=== PATIENT | male | born 2000 | race Caucasian/White ===

== ENCOUNTER 2018-06-08 08:52 | Emergency (ER) | payer OTHER ==
[~2018-06-08] VITALS: Ht 162.6 cm; Wt 109.1 kg
[2018-06-08] MEDS ORDERED: LEVALBUTEROL HCL 1.25 MG/0.5 ML NEB SOLUTION NEB ONE (09:10)
[2018-06-08] MEDS ORDERED: IPRATROPIUM BROMIDE 0.5 MG/2.5 ML NEB SOLUTION NEB ONE (09:15)
[2018-06-08] MEDS ORDERED: MethylPREDNISolone SOD SUCC 125 MG/2 ML VIAL IM ONE (09:15)
[2018-06-08] MEDS ORDERED: 0.9% SODIUM CHLORIDE 15 ML NEB SOLUTION NEB ONE (09:16)
[2018-06-08] MEDS ORDERED: ALBUTEROL SULFATE HFA 90 MCG/PUFF 8 GM INHALER IH ONE ×2 (10:50→11:00)
[2018-06-08 10:56] VITALS: BP 112/58
== END 2018-06-08 11:06 | disposition home or self-care (01) ==
LOC: EMS 08:53
DX: J45.909 Unspecified asthma, uncomplicated (principal)
CPT/HCPCS: 94644; 96372; 99285; J2930; Z7610; J3535

== ENCOUNTER 2019-01-17 21:59 | Emergency (ER) | payer OTHER ==
[~2019-01-17] VITALS: Ht 162.6 cm; Wt 109.1 kg
[2019-01-17] MEDS ORDERED: IPRATROPIUM BROMIDE 0.5 MG/2.5 ML NEB SOLUTION NEB ONE ×2 (22:15→23:00)
[2019-01-17] MEDS ORDERED: ALBUTEROL SULFATE 2.5 MG/0.5 ML NEB SOLUTION NEB ONE ×2 (22:15→23:00)
[2019-01-17 22:57] LABS: BASOPHILS % (AUTO) 0.4 % (0.0-2.0); EOSINOPHILS % (AUTO) 3.2 % (1.0-6.0); HEMATOCRIT 45.4 % (41-53); HEMOGLOBIN 15.3 g/dL (13.5-17.5); LYMPHOCYTES % (AUTO) 20.2 % (22.0-44.0); MEAN CORPUSCULAR HEMOGLOBIN 28.6 pg (26.0-34.0); MEAN CORPUSCULAR HGB CONC 33.6 G/dL (31.0-37.0); MEAN CORPUSCULAR VOLUME 85 fL (80-100); MONOCYTES # (AUTO) 1.6 K/uL (0.1-1.0); MONOCYTES % (AUTO) 10.5 % (2.0-9.0); NEUTROPHILS # (AUTO) 9.9 K/uL (1.8-7.7); NEUTROPHILS % (AUTO) 65.7 % (40.0-70.0); PLATELET COUNT (AUTO) 299 K/uL (150-450); RED BLOOD CELL COUNT(AUTO) 5.33 MIL/uL (4.50-5.90); RED CELL DISTRIBUTION WIDTH 13.7 % (11.5-14.5)
[2019-01-17] MEDS ORDERED: MethylPREDNISolone SOD SUCC 125 MG/2 ML VIAL IVP ONE (23:00)
[2019-01-17] MEDS ORDERED: ACETAMINOPHEN 500 MG TABLET PO ONE (23:00)
[2019-01-17 23:14] LABS: ALANINE AMINOTRANSFERASE 32 U/L (12-78); ALBUMIN 3.7 g/dL (3.4-5.0); ALKALINE PHOSPHATASE 88 U/L (46-116); ANION GAP 12 mmol/L (8-16); ASPARTATE AMINOTRANSFERASE 17 U/L (15-37); BILIRUBIN,TOTAL 0.7 mg/dL (0.1-1.0); CALCIUM, TOTAL 8.9 mg/dL (8.8-10.5); CARBON DIOXIDE 25 mmol/L (22-29); CHLORIDE 104 mmol/L (98-107); GLOMERULAR FILTR. RATE CALC > 60 mL/min (>60); GLUCOSE,RANDOM 99 mg/dL (70-110); POTASSIUM 3.5 mmol/L (3.5-5.1); SODIUM SERUM 141 mmol/L (136-145); TOTAL PROTEIN, SERUM 7.8 g/dL (6.4-8.2)
[2019-01-17 23:19] LABS: UREA NITROGEN, BLOOD 10 mg/dL (7-18)
[2019-01-17 23:20] LABS: LACTIC ACID 0.9 mmol/L (0.4-2.0)
[2019-01-18 00:37] LABS: INFLUENZA TYPE A NEGATIVE FOR TYPE A (NEGATIVE); INFLUENZA TYPE B NEGATIVE FOR TYPE B (NEGATIVE)
[2019-01-18 01:36] VITALS: BP 123/75
[2019-01-18] MEDS ORDERED: ALBUTEROL SULFATE HFA 90 MCG/PUFF 8 GM INHALER IH ONE (01:45)
== END 2019-01-18 01:36 | disposition home or self-care (01) ==
LOC: EMS 22:00
DX: J45.901 Unspecified asthma with (acute) exacerbation (principal); J18.9 Pneumonia, unspecified organism; J06.9 Acute upper respiratory infection, unspecified
CPT/HCPCS: 36415; 71045; 80053; 83605; 85025; 87040; 87804; 94640 ×2; 96374; 99285; J2930; 94060; J3535

== ENCOUNTER 2019-02-05 23:07 | Emergency (ER) | payer OTHER ==
[~2019-02-05] VITALS: Ht 162.6 cm; Wt 111.4 kg
[2019-02-06] MEDS ORDERED: IPRATROPIUM BROMIDE 0.5 MG/2.5 ML NEB SOLUTION NEB ONE (00:15)
[2019-02-06] MEDS ORDERED: ALBUTEROL SULFATE 2.5 MG/0.5 ML NEB SOLUTION NEB ONE (00:15)
[2019-02-06] MEDS ORDERED: ALBUTEROL SULFATE HFA 90 MCG/PUFF 8 GM INHALER IH ONE (01:00)
[2019-02-06] MEDS ORDERED: PredniSONE 20 MG TABLET PO ONE (01:00)
[2019-02-06 01:09] VITALS: BP 127/54
== END 2019-02-06 01:25 | disposition home or self-care (01) ==
LOC: EMS 23:08
DX: J45.909 Unspecified asthma, uncomplicated (principal)
CPT/HCPCS: 94640 ×2; 99284; J7512; J3535

== ENCOUNTER 2019-02-21 02:13 | Emergency (ER) | payer OTHER ==
[~2019-02-21] VITALS: Ht 162.6 cm; Wt 109.1 kg
[2019-02-21] MEDS ORDERED: IPRATROPIUM BROMIDE 0.5 MG/2.5 ML NEB SOLUTION NEB ONE ×2 (02:15→04:30)
[2019-02-21] MEDS ORDERED: ALBUTEROL SULFATE 5 MG/ML 20 ML NEB SOLN [BULK] NEB ONE (02:15)
[2019-02-21] MEDS ORDERED: 0.9% SODIUM CHLORIDE 15 ML NEB SOLUTION NEB ONE (02:20)
[2019-02-21] MEDS ORDERED: ALBU8HFA IH (02:33)
[2019-02-21] MEDS ORDERED: ALBUTEROL SULFATE 2.5 MG/0.5 ML NEB SOLUTION NEB ONE (04:30)
[2019-02-21] MEDS ORDERED: EPINEPHrine 1:1,000 [1 MG/ML] AMP SQ ONE (04:30)
[2019-02-21] MEDS ORDERED: PredniSONE 20 MG TABLET PO ONE (04:30)
[2019-02-21 04:58] VITALS: BP 122/68
== END 2019-02-21 05:05 | disposition home or self-care (01) ==
LOC: EMS 02:15
DX: J45.901 Unspecified asthma with (acute) exacerbation (principal); J18.0 Bronchopneumonia, unspecified organism
CPT/HCPCS: 71045; 94640; 94644; 96372; 99285; J0171; J7512; 94060

== ENCOUNTER 2019-11-09 08:35 | Emergency (ER) | payer SELFPAY ==
[~2019-11-09] VITALS: Ht 162.6 cm; Wt 109.1 kg
[~2019-11-09 08:35] MED LIST: ALBU8HFA IH
[2019-11-09 10:34] VITALS: BP 141/64
== END 2019-11-09 10:54 | disposition home or self-care (01) ==
LOC: EMS 08:40
DX: J45.909 Unspecified asthma, uncomplicated (principal)

== ENCOUNTER 2021-04-23 20:04 | Emergency (ER) | payer OTHER ==
[~2021-04-23] VITALS: Ht 165.1 cm; Wt 118.2 kg
[2021-04-23 21:00] VITALS: BP 133/78
[2021-04-23] MEDS ORDERED: ALBUTEROL SULFATE HFA 90 MCG/PUFF 8 GM INHALER IH ONE (21:15)
== END 2021-04-23 21:34 | disposition home or self-care (01) ==
LOC: EMS 20:08
DX: J45.909 Unspecified asthma, uncomplicated (principal); Z76.0 Encounter for issue of repeat prescription; Z79.899 Other long term (current) drug therapy
CPT/HCPCS: 94640; 99283; J3535

== ENCOUNTER 2021-05-15 05:03 | Emergency (ER) | payer OTHER ==
[~2021-05-15] VITALS: Ht 162.6 cm; Wt 109.1 kg
[2021-05-15] MEDS ORDERED: PredniSONE 20 MG TABLET PO ONE (06:15)
[2021-05-15] MEDS ORDERED: ALBUTEROL SULFATE 5 MG/ML 20 ML NEB SOLN [BULK] NEB ONE (06:15)
[2021-05-15] MEDS ORDERED: IPRATROPIUM BROMIDE 0.5 MG/2.5 ML NEB SOLUTION NEB ONE (06:15)
[2021-05-15] MEDS ORDERED: 0.9% SODIUM CHLORIDE 5 ML NEB SOLUTION NEB ONE (06:26)
[2021-05-15 07:41] VITALS: BP 133/72
== END 2021-05-15 08:29 | disposition home or self-care (01) ==
LOC: EMS 05:03
DX: J45.909 Unspecified asthma, uncomplicated (principal)
CPT/HCPCS: 94644; 99285; J7512

== ENCOUNTER 2021-05-29 21:55 | Inpatient (IN) | payer OTHER ==
[~2021-05-29] VITALS: Ht 162.6 cm; Wt 119.5 kg
[2021-05-29] MEDS ORDERED: ALBUTEROL SULFATE 5 MG/ML 20 ML NEB SOLN [BULK] NEB ONE (22:20)
[2021-05-29] MEDS ORDERED: IPRATROPIUM BROMIDE 0.5 MG/2.5 ML NEB SOLUTION NEB ONE (22:30)
[2021-05-29] MEDS ORDERED: MethylPREDNISolone SOD SUCC 125 MG/2 ML VIAL IVP ONE (22:30)
[2021-05-29] MEDS ORDERED: 0.9% SODIUM CHLORIDE 5 ML NEB SOLUTION NEB ONE (22:35)
[2021-05-29 22:44] LABS: BASOPHILS % (AUTO) 0.8 % (0.0-2.0); EOSINOPHILS % (AUTO) 3.9 % (1.0-6.0); HEMATOCRIT 46.5 % (41-53); HEMOGLOBIN 15.2 g/dL (13.5-17.5); LYMPHOCYTES # (AUTO) 3.2 K/uL (1.0-4.8); LYMPHOCYTES % (AUTO) 27.8 % (22.0-44.0); MEAN CORPUSCULAR HEMOGLOBIN 28.4 pg (26.0-34.0); MEAN CORPUSCULAR HGB CONC 32.7 G/dL (31.0-37.0); MEAN CORPUSCULAR VOLUME 87 fL (80-100); MONOCYTES # (AUTO) 0.9 K/uL (0.1-1.0); MONOCYTES % (AUTO) 7.7 % (2.0-9.0); NEUTROPHILS % (AUTO) 59.8 % (40.0-70.0); PLATELET COUNT (AUTO) 335 K/uL (150-450); RED BLOOD CELL COUNT(AUTO) 5.35 MIL/uL (4.50-5.90); RED CELL DISTRIBUTION WIDTH 14.6 % (11.5-14.5)
[2021-05-29 22:55] LABS: ANION GAP 8 mmol/L (8-16); CALCIUM, TOTAL 8.7 mg/dL (8.8-10.5); CARBON DIOXIDE 26 mmol/L (22-29); CHLORIDE 107 mmol/L (98-107); CREATININE 0.94 mg/dL (0.60-1.30); GLOMERULAR FILTR. RATE CALC > 60 mL/min (>60); GLUCOSE,RANDOM 110 mg/dL (70-110); SODIUM SERUM 141 mmol/L (136-145); UREA NITROGEN, BLOOD 22 mg/dL (7-18)
[2021-05-29 23:19] LABS: B-TYPE NATRIURETIC PEPTIDE < 4 pg/mL (0-100)
[2021-05-29 23:20] LABS: ALANINE AMINOTRANSFERASE 55 U/L (12-78); ALBUMIN 3.5 g/dL (3.4-5.0); ALKALINE PHOSPHATASE 111 U/L (46-116); ASPARTATE AMINOTRANSFERASE 24 U/L (15-37); BILIRUBIN,TOTAL 0.2 mg/dL (0.1-1.0); CREATINE KINASE, TOTAL ONLY 114 U/L (39-308); TOTAL PROTEIN, SERUM 7.8 g/dL (6.4-8.2)
[2021-05-30] MEDS ORDERED: SODIUM CHLORIDE 0.9% 1,000 ML IV ONE
[2021-05-30] MEDS ORDERED: ACETAMINOPHEN 325 MG TABLET PO PRN (00:15)
[2021-05-30] MEDS ORDERED: ONDANSETRON HCL 4 MG/2 ML VIAL IVP PRN (00:15)
[2021-05-30] MEDS ORDERED: MAGNESIUM SULFATE 2 GM/WATER 50 ML IV ONE (00:45)
[2021-05-30 01:04] LABS: COVID AG,FIA SOURCE NASOPHARYNGEAL
[2021-05-30 01:11] LABS: ABG A-A DIFF O2 43.2 mmHg (10-20.0); ABG BASE EXCESS -3.9 mmol/L (-2.0-3.0); ABG CARBOXYHEMOGLOBIN 0.3 % (0.0-3.0); ABG HCO3 21.7 mmol/L (22.0-26.0); ABG METHEMOGLOBIN 0.2 % (0.0-1.5); ABG OXYGEN CONTENT 20.2 mL/dL (15.0-23.0); ABG OXYGEN SATURATION 91.5 % (95.0-98.0); ABG PCO2 37 mmHg (35-45); ABG PH 7.379 (7.350-7.450); ABG TOTAL HEMOGLOBIN 15.8 G/dL (12.0-18.0); PO2, ARTERIAL BG 62.3 mmHg (80.0-100.0); SOURCE, BLOOD GAS ARTERIAL; TEMPERATURE, FAHRENHEIT, BG 98.6 FAHREN (96.0-98.6)
[2021-05-30 01:12] LABS: O2 DEVICE,BLOOD GAS ROOM AIR (ROOM AIR); SITE, BLOOD GAS RT RADIAL
[2021-05-30 03:10] VITALS: BP 132/52
[2021-05-30] MEDS: IPRATROPIUM BROMIDE 0.5 MG/2.5 ML NEB SOLUTION NEB PRN ×4 (06:48→21:06)
[2021-05-30] MEDS: ALBUTEROL SULFATE 2.5 MG/0.5 ML NEB SOLUTION NEB PRN ×4 (06:48→21:06)
[2021-05-30 07:26] VITALS: BP 130/50
[2021-05-30] MEDS: MethylPREDNISolone SOD SUCC 125 MG/2 ML VIAL IVP SCH (08:12)
[2021-05-30] MEDS: HEPARIN SODIUM,PORCINE 5,000 UNITS/ML VIAL SQ SCH ×3 (08:13→23:37)
[2021-05-30 11:03] VITALS: BP 141/61
[2021-05-30 16:27] VITALS: BP 116/47
[2021-05-30 19:26] VITALS: BP 122/47
[2021-05-30 23:16] VITALS: BP 118/48
[2021-05-31 04:24] VITALS: BP 108/65
[2021-05-31 07:50] VITALS: BP 130/83
[2021-05-31] MEDS: HEPARIN SODIUM,PORCINE 5,000 UNITS/ML VIAL SQ SCH ×3 (08:35→23:37)
[2021-05-31] MEDS: MethylPREDNISolone SOD SUCC 125 MG/2 ML VIAL IVP SCH (08:35)
[2021-05-31] MEDS: ALBUTEROL SULFATE 2.5 MG/0.5 ML NEB SOLUTION NEB PRN (10:33)
[2021-05-31] MEDS: IPRATROPIUM BROMIDE 0.5 MG/2.5 ML NEB SOLUTION NEB PRN (10:33)
[2021-05-31] MEDS: BUDESONIDE 0.5 MG/2 ML NEB SOLUTION NEB SCH ×2 (11:17→20:21)
[2021-05-31] MEDS: ALBUTEROL SULFATE 2.5 MG/0.5 ML NEB SOLUTION NEB SCH ×2 (15:07→20:20)
[2021-05-31] MEDS: IPRATROPIUM BROMIDE 0.5 MG/2.5 ML NEB SOLUTION NEB SCH ×2 (15:07→20:21)
[2021-05-31 16:30] VITALS: BP 122/58
[2021-05-31 19:23] VITALS: BP 109/50
[2021-05-31 23:18] VITALS: BP 108/67
[2021-06-01 03:25] LABS: AMPHET/METH SCREEN,URINE NEGATIVE (NEGATIVE); BARBITURATE SCREEN, URINE NEGATIVE (NEGATIVE); BENZODIAZEPINES SCREEN,URINE NEGATIVE (NEGATIVE); CANNABINOID SCREEN,URINE NEGATIVE (NEGATIVE); COCAINE SCREEN,URINE NEGATIVE (NEGATIVE); METHADONE SCREEN, URINE NEGATIVE (NEGATIVE); OPIATE SCREEN,URINE NEGATIVE (NEGATIVE)
[2021-06-01 03:26] LABS: PHENCYCLIDINE SCREEN,URINE NEGATIVE (NEGATIVE)
[2021-06-01 03:32] VITALS: BP 141/59
[2021-06-01] MEDS: IPRATROPIUM BROMIDE 0.5 MG/2.5 ML NEB SOLUTION NEB SCH (03:42)
[2021-06-01] MEDS: ALBUTEROL SULFATE 2.5 MG/0.5 ML NEB SOLUTION NEB SCH ×2 (03:42→07:10)
[2021-06-01] MEDS: BUDESONIDE 0.5 MG/2 ML NEB SOLUTION NEB SCH (08:07)
[2021-06-01] MEDS: HEPARIN SODIUM,PORCINE 5,000 UNITS/ML VIAL SQ SCH (08:08)
[2021-06-01] MEDS: MethylPREDNISolone SOD SUCC 125 MG/2 ML VIAL IVP SCH (08:08)
[2021-06-01 10:53] VITALS: BP 129/60
[2021-06-01] MEDS ORDERED: MethylPREDNISolone SOD SUCC 40 MG/ML VIAL IVP SCH (12:15)
[2021-06-01] MEDS ORDERED: PRED20 PO ×2 (14:46→14:47)
[2021-06-01] MEDS ORDERED: PRED10 PO (14:47)
[2021-06-01] MEDS ORDERED: PRED-409 PO (14:47)
== END 2021-06-01 15:20 | disposition home or self-care (01) | DRG 141 ==
LOC: EMS 21:59 → 5S 05-30 01:00
PROVIDERS: ADMIT Internal Medicine; ATTEND Internal Medicine
DX: J45.901 Unspecified asthma with (acute) exacerbation (principal); E66.01 Morbid (severe) obesity due to excess calories; R09.02 Hypoxemia; Z20.822 Contact with and (suspected) exposure to COVID-19; Z68.42 Body mass index [BMI] 45.0-49.9, adult; Z79.899 Other long term (current) drug therapy
CPT/HCPCS: 36600; 71045; 80053; 80307; 82550; 82805; 83735; 83880; 84484; 85025; 93005; 94640; 94644; 99291; J1644; J2930; J3475; J7030; 36415-L1; 36415-TC; J7611; J7613

== ENCOUNTER 2021-07-07 04:52 | Emergency (ER) | payer OTHER ==
[~2021-07-07] VITALS: Ht 165.1 cm; Wt 122.7 kg
[~2021-07-07 04:52] MED LIST changes: +PRED-409 PO; +PRED10 PO; +PRED20 PO
[2021-07-07 05:01] VITALS: BP 113/65
[2021-07-07] MEDS ORDERED: PredniSONE 20 MG TABLET PO ONE (05:15)
[2021-07-07] MEDS ORDERED: IPRATROPIUM BROMIDE 0.5 MG/2.5 ML NEB SOLUTION NEB ONE ×2 (05:15→06:00)
[2021-07-07] MEDS ORDERED: ALBUTEROL SULFATE 5 MG/ML 20 ML NEB SOLN [BULK] NEB ONE ×2 (05:15→06:00)
[2021-07-07 05:59] LABS: COVID AG,FIA SOURCE NASOPHARYNGEAL
== END 2021-07-07 07:06 | disposition home or self-care (01) ==
LOC: EMS 04:53
DX: J45.901 Unspecified asthma with (acute) exacerbation (principal); Z79.899 Other long term (current) drug therapy; Z20.822 Contact with and (suspected) exposure to COVID-19
CPT/HCPCS: 87426; 94640; 99285; J7512

== ENCOUNTER 2023-03-28 06:51 | Emergency (ER) | payer OTHER ==
[~2023-03-28] VITALS: Ht 165.1 cm; Wt 118.2 kg
[~2023-03-28 06:51] MED LIST changes: +ALBU18HF12 IH; -ALBU8HFA IH; -PRED-409 PO; +PRED-549 PO; +PRED-554 PO; +PRED-729 PO; -PRED10 PO; -PRED20 PO
[2023-03-28 07:02] VITALS: TEMP 99.1
[2023-03-28 07:43] VITALS: PULSE 92; RESP 18; O2SAT 92
[2023-03-28] MEDS ORDERED: IPRATROPIUM BROMIDE 0.5 MG/2.5 ML NEB SOLUTION NEB ONE (07:45)
[2023-03-28] MEDS ORDERED: PredniSONE 20 MG TABLET PO ONE (07:45)
[2023-03-28] MEDS ORDERED: ALBUTEROL SULFATE 2.5 MG/0.5 ML NEB SOLUTION NEB ONE (07:45)
[2023-03-28 07:55] VITALS: PULSE 94; RESP 18; O2SAT 100
[2023-03-28] MEDS ORDERED: PRED-554 PO (10:53)
[2023-03-28] MEDS ORDERED: ALBUTEROL SULFATE HFA 90 MCG/PUFF 8 GM INHALER IH ONE (11:00)
[2023-03-28 11:10] VITALS: BP 136/74; PULSE 88; RESP 18
== END 2023-03-28 11:24 | disposition home or self-care (01) ==
LOC: EMS 06:51
DX: J45.901 Unspecified asthma with (acute) exacerbation (principal)
CPT/HCPCS: 99285; 94640; J7512; J3535

== ENCOUNTER 2024-02-05 23:35 | Emergency (ER) | payer OTHER ==
[~2024-02-05] VITALS: Ht 162.6 cm; Wt 85.9 kg
[2024-02-05 00:15] VITALS: PULSE 113; RESP 20; O2SAT 95
[~2024-02-05 23:35] MED LIST changes: -PRED-549 PO; -PRED-729 PO
[2024-02-05 23:38] VITALS: TEMP 98.1
[2024-02-06 00:15] VITALS: PULSE 113; RESP 22; O2SAT 95
[2024-02-06] MEDS: ALBUTEROL SULFATE 2.5 MG/0.5 ML NEB SOLUTION NEB ONE (00:20)
[2024-02-06] MEDS: IPRATROPIUM BROMIDE 0.5 MG/2.5 ML NEB SOLUTION NEB ONE ×2 (00:21→01:06)
[2024-02-06 00:25] VITALS: PULSE 113; RESP 20; O2SAT 95
[2024-02-06 00:25] LABS: BASOPHILS % (AUTO) 1.1 % (0.0-2.0); EOSINOPHILS % (AUTO) 4.1 % (1.0-6.0); HEMATOCRIT 44.9 % (41-53); MEAN CORPUSCULAR HGB CONC 33.4 G/dL (31.0-37.0); MEAN CORPUSCULAR VOLUME 87 fL (80-100); MONOCYTES # (AUTO) 0.9 K/uL (0.1-1.0); MONOCYTES % (AUTO) 7.1 % (2.0-9.0); NEUTROPHILS # (AUTO) 8.4 K/uL (1.8-7.7); NEUTROPHILS % (AUTO) 64.7 % (40.0-70.0); PLATELET COUNT (AUTO) 326 K/uL (150-450); RED BLOOD CELL COUNT(AUTO) 5.18 MIL/uL (4.50-5.90)
[2024-02-06 00:34] LABS: ANION GAP 4 mmol/L (8-16); CALCIUM, TOTAL 9.5 mg/dL (8.8-10.5); CARBON DIOXIDE 33 mmol/L (22-29); CHLORIDE 104 mmol/L (98-107); CREATININE 0.99 mg/dL (0.60-1.30); GLOMERULAR FILTR. RATE CALC > 60 mL/min (>60); GLUCOSE,RANDOM 110 mg/dL (70-110); POTASSIUM 4.1 mmol/L (3.5-5.1); SODIUM SERUM 141 mmol/L (136-145); UREA NITROGEN, BLOOD 11 mg/dL (7-18)
[2024-02-06 00:43] VITALS: PULSE 121; RESP 19; O2SAT 97
[2024-02-06] MEDS: ALBUTEROL SULFATE 2.5 MG/0.5 ML 5 ML NEB SOLUTION NEB ONE (01:06)
[2024-02-06 01:10] VITALS: PULSE 105; RESP 18; O2SAT 95
[2024-02-06] MEDS: MethylPREDNISolone SOD SUCC 125 MG/2 ML VIAL IM ONE (01:13)
[2024-02-06 01:55] VITALS: PULSE 121; RESP 20; O2SAT 99
[2024-02-06 02:06] VITALS: BP 137/69; PULSE 119; RESP 24
[2024-02-06] MEDS ORDERED: ALBU18HF12 IH (02:32)
[2024-02-06] MEDS ORDERED: GUAIFDM PO (02:32)
[2024-02-06] MEDS ORDERED: PRED-554 PO (02:32)
== END 2024-02-06 02:58 | disposition home or self-care (01) ==
LOC: EMS 23:35
DX: J45.901 Unspecified asthma with (acute) exacerbation (principal); R06.02 Shortness of breath; R05.9 Cough, unspecified
CPT/HCPCS: 99285; 80048; 85025; 36415; 94060; 71045; 94644; 96372; J2919; Q9967; 94640; J7613